=== PATIENT | female | born 1975 | race Caucasian/White ===

== ENCOUNTER 2017-08-30 21:00 | Emergency (ER) | payer OTHER ==
--- NOTE | 2017-08-30 21:47 | C.PDOC ---
History Of Present Illness 41 year old female presents to the emergency department with complaints of burning chest pain located near her midline. Patient reports chest pain is associated with nausea and loose stool earlier today. Patient also reports vague dizziness. Patient denies vomiting or shortness of breath. Patient reports she underwent an MRI of her brain earlier today done by Dr. Joe who is her PMD. Patient denies other medical history, surgical history, current medications, and allergies. Time Seen by Provider: 08/30/17 21:42 Chief Complaint (Nursing): Chest Pain History Per: Patient History/Exam Limitations: no limitations Onset/Duration Of Symptoms: Hrs Current Symptoms Are (Timing): Still Present Quality: Burning, "Pain" Associated Symptoms: Nausea. denies: Dyspnea Past Medical History Reviewed: Historical Data, Nursing Documentation, Vital Signs Vital Signs: Last Vital Signs Temp 97.8 F 08/31/17 00:13 Pulse 77 08/31/17 00:13 Resp 18 08/31/17 00:13 BP 134/85 08/31/17 00:13 Pulse Ox 98 08/31/17 18:00 - Medical History PMH: Anxiety, HTN Surgical History: No Surg Hx Family History: States: No Known Family Hx - Social History Hx Tobacco Use: No Hx Alcohol Use: No Hx Substance Use: No - Immunization History Hx Tetanus Toxoid Vaccination: No Hx Influenza Vaccination: No Hx Pneumococcal Vaccination: No Review Of Systems Except As Marked, All Systems Reviewed And Found Negative. Constitutional: Negative for: Fever, Chills, Sweats Eyes: Negative for: Pain, Vision Change, Conjunctivae Inflammation ENT: Negative for: Ear Pain, Ear Discharge, Nose Pain, Nose Discharge Cardiovascular: Positive for: Chest Pain. Negative for: Palpitations, Orthopnea , Paroxysmal Noc. Dyspnea Respiratory: Negative for: Cough, Shortness of Breath, Hemoptysis, SOB with Excertion, Pleuritic Pain, Sputum Gastrointestinal: Positive for: Nausea, Diarrhea. Negative for: Vomiting Genitourinary: Negative for: Dysuria, Frequency, Incontinence Musculoskeletal: Negative for: Neck Pain, Shoulder Pain, Arm Pain Skin: Negative for: Rash Neurological: Positive for: Dizziness. Negative for: Weakness, Numbness Psych: Negative for: Anxiety, Depression Physical Exam - Physical Exam Appears: Non-toxic, No Acute Distress Skin: Normal Color, Warm, Dry Head: Atraumatic, Normacephalic Eye(s): bilateral: Normal Inspection, PERRL, EOMI Nose: Normal Oral Mucosa: Moist Tongue: Normal Appearing Lips: Normal Appearing Teeth: Normal Dentition Throat: Normal Neck: Normal, Supple Chest: Symmetrical Cardiovascular: Rhythm Regular, No Murmur Respiratory: Normal Breath Sounds, No Rales, No Rhonchi, No Wheezing Gastrointestinal/Abdominal: Normal Exam, Soft, No Tenderness, Other (abdomen is obese) Extremity: Normal ROM, No Tenderness Extremity: Bilateral: Atraumatic, No Pedal Edema, Normal Color And Temperature, Normal ROM Neurological/Psych: Oriented x3, Normal Speech, Normal Cognition ED Course And Treatment - Laboratory Results Result Diagrams: 08/30/17 22:35 08/30/17 23:13 O2 Sat by Pulse Oximetry: 98 (RA) Pulse Ox Interpretation: Normal Medical Decision Making Medical Decision Making: Plan: EKG CMP Lipase CBC CXR Two Views 1tab PO Duoneb 3ml INH Maalox 30ml Protonix 40mg IVP Reglan 10mg IVP NaCl IV Fluids Toradol 30mg IVP Nebulizer Treatment Urinalysis Results: CBC 12.5, 1+ Urine Blood, Urine negative. pt improved Disposition Counseled Patient/Family Regarding: Diagnosis, Need For Followup, Rx Given - Disposition Referrals: [facility] [Outside] [facility] [Outside] [facility] [place] [Outside] Disposition: HOME/ ROUTINE Disposition Time: 23:52 Condition: GOOD Prescriptions: Famotidine [Pepcid] 40 mg PO DAILY 20 Days #20 tablet Forms: [employer] (Khmer) - Clinical Impression Clinical Impression: Chest discomfort, GERD (gastroesophageal reflux disease) - Scribe Statement The provider has reviewed the documentation as recorded by the Scribe (Darinel Brothers) Provider Attestation: All medical record entries made by the Scribe were at my direction and personally dictated by me. I have reviewed the chart and agree that the record accurately reflects my personal performance of the history, physical exam, medical decision making, and the department course for this patient. I have also personally directed, reviewed, and agree with the discharge instructions and disposition.
[2017-08-30] MEDS ORDERED: Sodium Chloride 0.9% 1,000 ML IV ONE (22:27)
[2017-08-30] MEDS ORDERED: Aluminum Hydroxide/Magnesium Hydroxide Susp (30 mL) PO STA (22:27)
[2017-08-30] MEDS ORDERED: Belladonna-Phenobarbital PO STA (22:27)
[2017-08-30] MEDS ORDERED: Aluminum Hydroxide/Magnesium Hydroxide Susp (30 mL) ONE (22:42)
[2017-08-30] MEDS ORDERED: Belladonna-Phenobarbital ONE (22:42)
[2017-08-30 22:43] LABS: BASO # 0.2 K/uL (0.0-0.2); BASO % 1.3 % (0.0-2.0); EOS # 0.2 K/uL (0.0-0.7); EOS % 1.2 % (0.0-4.0); HEMOGLOBIN 13.7 g/dL (11.0-16.0); LYMPH # 2.4 K/uL (1.0-4.3); LYMPH % 19.6 % (20.0-40.0); MEAN CORPUSCULAR HEMOGLOBIN 28.2 pg (27.0-31.0); MEAN CORPUSCULAR HGB CONC 33.5 g/dL (33.0-37.0); MEAN PLATELET VOLUME 10.1 fL (7.2-11.7); MONO # 0.7 K/uL (0.0-0.8); MONO % 5.3 % (0.0-10.0); NEUT # 9.1 K/uL (1.8-7.0); NEUT % 72.6 % (50.0-75.0); RBC 4.87 Mil/uL (3.80-5.20); WHITE BLOOD COUNT 12.5 K/uL (4.8-10.8)
[2017-08-30] MEDS ORDERED: Sodium Chloride 0.9% 1,000 ML ONE (22:43)
[2017-08-30] MEDS ORDERED: Albuterol-Ipratrop 3 mg / 0.5 (3 ml) UD INH STA (22:43)
[2017-08-30 22:48] LABS: HCG,QUALITATIVE URINE NEGATIVE (NEGATIVE)
[2017-08-30 22:49] LABS: SQUAMOUS EPITHIAL 2 /hpf (0-5); URINE BACTERIA RARE (<OCC); URINE BILIRUBIN NEGATIVE (NEGATIVE); URINE BLOOD 1+ (NEGATIVE); URINE CLARITY Clear (Clear); URINE COLOR Yellow (YELLOW); URINE GLUCOSE (UA) NORMAL (Normal); URINE LEUKOCYTE ESTERASE NEG Leu/uL (Negative); URINE PROTEIN NEGATIVE (NEGATIVE); URINE UROBILINOGEN NORMAL mg/dL (0.2-1.0)
[2017-08-30 23:29] LABS: ALB/GLOB RATIO 1.1 (1.0-2.1); ALBUMIN 3.8 g/dL (3.5-5.0); CALCIUM 8.8 mg/dl (8.6-10.4); GFR AFRICAN-AMERICAN > 60; GFR NON-AFRICAN AMERICAN > 60; LIPASE 89 U/L (23-300)
[2017-08-30 23:39] LABS: ALT/SGPT 24 U/L (9-52); AST/SGOT 24 U/L (14-36); BLOOD UREA NITROGEN 20 mg/dL (7-17)
[2017-08-30] MEDS ORDERED: Albuterol-Ipratrop 3 mg / 0.5 (3 ml) UD ONE (23:53)
[2017-08-31 00:14] VITALS: BP 134/85; PULSE 77; RESP 18; TEMP 97.8
--- NOTE | 2017-08-31 07:45 | RAD ---
HISTORY: abd pain COMPARISON: Chest x-ray 04/02/2015 TECHNIQUE: Chest PA and lateral FINDINGS: LUNGS: No focal consolidation is seen. PLEURA: No pleural effusion is identified. CARDIOVASCULAR: Heart size is within normal limits. OSSEOUS STRUCTURES: Degenerative changes noted of the spine. VISUALIZED UPPER ABDOMEN: Unremarkable. OTHER FINDINGS: None. IMPRESSION: No acute cardiopulmonary process seen.
--- NOTE | 2017-08-31 12:12 | CARD ---
APPROVED REPORT EKG Measurement Heart [id number] <Conclusion> Normal sinus rhythm with sinus arrhythmia Normal ECG
[2017-08-31 18:00] VITALS: O2SAT 98
== END 2017-08-31 00:15 | disposition home or self-care (01) ==
LOC: C.ER 21:00
DX: K21.9 Gastro-esophageal reflux disease without esophagitis (principal); R07.89 Other chest pain
CPT/HCPCS: 71046; 80053; 81001; 83690; 84703; 85025; 93005; 96361; 96374; 96375; 99285; C9113; J1885; J2765; J7040

== ENCOUNTER 2017-10-26 02:21 | Emergency (ER) | payer OTHER ==
[2017-10-26 02:35] VITALS: BMI 46.7
[2017-10-26 02:40] VITALS: TEMP 97.5
[2017-10-26 03:33] LABS: BASO # 0.1 K/uL (0.0-0.2); BASO % 1.3 % (0.0-2.0); EOS # 0.1 K/uL (0.0-0.7); HEMOGLOBIN 12.5 g/dL (11.0-16.0); LYMPH # 3.1 K/uL (1.0-4.3); MEAN CELL VOLUME 83.6 fL (81.0-99.0); MEAN CORPUSCULAR HEMOGLOBIN 27.3 pg (27.0-31.0); MEAN CORPUSCULAR HGB CONC 32.6 g/dL (33.0-37.0); MEAN PLATELET VOLUME 10.3 fL (7.2-11.7); MONO # 0.7 K/uL (0.0-0.8); MONO % 5.9 % (0.0-10.0); NEUT # 7.4 K/uL (1.8-7.0); NEUT % 64.8 % (50.0-75.0); RBC 4.58 Mil/uL (3.80-5.20); RED CELL DISTRIBUTION WIDTH 14.8 % (11.5-14.5); WHITE BLOOD COUNT 11.4 K/uL (4.8-10.8)
--- NOTE | 2017-10-26 03:34 | C.PDOC ---
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 Pt denies fever, diarrhea, dysuria, hematuria, food association, sick contact or recent travel Time Seen by Provider: 10/26/17 02:44 Chief Complaint (Nursing): Abdominal Pain History Per: Patient History/Exam Limitations: no limitations Current Symptoms Are (Timing): Still Present Severity: Moderate Location Of Pain/Discomfort: LLQ Radiation Of Pain To:: None Quality Of Discomfort: "Pain" Associated Symptoms: Nausea, Vomiting (x1), Constipation. denies: Fever, Diarrhea, Loss Of Appetite, Back Pain, Urinary Symptoms Last Bowel Movement: Yesterday Recent travel outside of the [place]: No Past Medical History Vital Signs: Last Vital Signs Temp 97.5 F L 10/26/17 02:36 Pulse 85 10/26/17 02:36 Resp 26 H 10/26/17 02:36 BP 137/87 10/26/17 02:36 Pulse Ox 98 10/26/17 05:49 - Medical History PMH: Anxiety, HTN Family History: States: Unknown Family Hx - Social History Hx Tobacco Use: No Hx Alcohol Use: No Hx Substance Use: No - Immunization History Hx Tetanus Toxoid Vaccination: No Hx Influenza Vaccination: No Hx Pneumococcal Vaccination: No Review Of Systems Constitutional: Negative for: Fever, Weakness Cardiovascular: Negative for: Chest Pain, Palpitations Respiratory: Negative for: Cough, Shortness of Breath Gastrointestinal: Positive for: Nausea, Vomiting, Abdominal Pain (LLQ), Constipation. Negative for: Diarrhea, Hematochezia Genitourinary: Positive for: Other (urinary hesitancy). Negative for: Dysuria, Frequency, Hematuria, Vaginal Discharge, Vaginal Bleeding, Rash Neurological: Negative for: Weakness, Numbness Physical Exam - Physical Exam Appears: Well, Non-toxic, Other (Pt appears anxious) Skin: Normal Color Head: Atraumatic Eye(s): bilateral: Normal Inspection, PERRL Oral Mucosa: Moist Cardiovascular: Rhythm Regular Respiratory: Normal Breath Sounds Gastrointestinal/Abdominal: Bowel Sounds, Soft, Tenderness (LLQ), No Distention , No Guarding, Other (obese abdomen) Back: Normal Inspection, No CVA Tenderness Neurological/Psych: Oriented x3 Gait: Steady ED Course And Treatment - Laboratory Results Result Diagrams: 10/26/17 03:28 10/26/17 03:28 Urine POC: Negative O2 Sat by Pulse Oximetry: 98 (RA) Pulse Ox Interpretation: Normal - CT Scan/US CT Abdomen/Pelvis Other Rad Studies (CT/US): Read By Radiologist, Radiology Report Reviewed CT/US Interpretation: EXAM: CT Abdomen and Pelvis Without Intravenous Contrast. CLINICAL HISTORY: 42 years old, female; Pain; Abdominal pain; Additional info : Lt flank pain. TECHNIQUE: Axial computed tomography images of the abdomen and pelvis without intravenous. contrast. All CT scans at this facility use at least one of these dose optimization techniques: automated exposure control; mA and/or kV adjustment per patient size (includes targeted exams. where dose is matched to clinical indication); or iterative reconstruction. Coronal and sagittal. reformatted images were created and reviewed. COMPARISON: No relevant prior studies available. FINDINGS: Lung bases: Unremarkable. No mass. No consolidation. ABDOMEN: Liver: Unremarkable. Gallbladder and bile ducts: Unremarkable. No calcified stones. No ductal dilation. Pancreas: Unremarkable. No ductal dilation. Spleen: Unremarkable. No splenomegaly. Adrenals: Unremarkable. No mass. Kidneys and ureters: Hydronephrosis left kidney due to an obstructing 3 mm stone in the proximal. left ureter. Nonobstructing stone mid left kidney. No stones in the right kidney or in the right ureter. No. hydronephrosis on the right. Stomach and bowel: Unremarkable. No obstruction. No mucosal thickening. PELVIS: Appendix: Normal appendix. Bladder: Unremarkable. No stones. Reproductive: Unremarkable as visualized. ABDOMEN and PELVIS: Intraperitoneal space: Unremarkable. No free air. No significant fluid collection. Bones/joints: No acute fracture. No dislocation. Soft tissues: Unremarkable. Vasculature: Unremarkable. No abdominal aortic aneurysm. Lymph nodes: Unremarkable. No enlarged lymph nodes. IMPRESSION: Hydronephrosis left kidney due to an obstructing 3 mm stone in the proximal left ureter. Progress Note: Toradol im and zofran IV ordered. Upon re-evaluation, patient is in no distress, feeling much better, and is stable for discharge. Counseling has been provided and pt is in agreement. Return if symptoms persist or acutely worsen. Reevaluation Time: 05:58 Reassessment Condition: Improved Disposition Counseled Patient/Family Regarding: Diagnosis, Need For Followup, Rx Given - Disposition Referrals: Dread Figueroa MD [Staff Provider] - Disposition: HOME/ ROUTINE Disposition Time: 05:52 Condition: STABLE Additional Instructions: Please follow up with Urologist Increase PO fluids Take motrin if pain reccur Return to ER if worse Prescriptions: Ibuprofen [Motrin] 600 mg PO Q6H #20 tab Tamsulosin [Flomax] 0.4 mg PO DAILY #6 cap Instructions: Renal Colic (DC) Forms: [employer] (Cambodian) - Clinical Impression Clinical Impression: Renal colic on left side
[2017-10-26 03:41] LABS: HCG,QUALITATIVE URINE NEGATIVE (NEGATIVE)
[2017-10-26 03:44] LABS: SQUAMOUS EPITHIAL 3 /hpf (0-5); URINE BILIRUBIN NEGATIVE (NEGATIVE); URINE BLOOD 3+ (NEGATIVE); URINE CLARITY Hazy (Clear); URINE COLOR Yellow (YELLOW); URINE GLUCOSE (UA) NORMAL (Normal); URINE LEUKOCYTE ESTERASE NEG Leu/uL (Negative); URINE PROTEIN 1+ mg/dL (NEGATIVE); URINE UROBILINOGEN NORMAL mg/dL (0.2-1.0)
[2017-10-26] MEDS ORDERED: Sodium Chloride 0.9% 500 ML IV ONE (03:46)
[2017-10-26] MEDS ORDERED: Sodium Chloride 0.9% 1,000 ML ONE (03:53)
[2017-10-26 04:14] LABS: ALB/GLOB RATIO 1.3 (1.0-2.1); ALBUMIN 4.3 g/dL (3.5-5.0); CALCIUM 9.3 mg/dl (8.6-10.4)
[2017-10-26 06:07] VITALS: BP 164/78; PULSE 88; RESP 18; O2SAT 100
--- NOTE | 2017-10-26 09:30 | CT ---
Date of service: 10/26/2017 PROCEDURE: CT Abdomen and Pelvis without intravenous contrast HISTORY: Left flank pain. COMPARISON: None. TECHNIQUE: Multiple contiguous axial images were performed through the abdomen and pelvis without the use of intravenous contrast. Subsequently, sagittal and coronal reformatted images were obtained. Radiation dose: Total exam DLP = 1280 mGy-cm. This CT exam was performed using one or more of the following dose reduction techniques: Automated exposure control, adjustment of the mA and/or kV according to patient size, and/or use of iterative reconstruction technique. FINDINGS: LOWER THORAX: Unremarkable. LIVER: Unremarkable. No gross lesion or ductal dilatation. GALLBLADDER AND BILE DUCTS: Unremarkable. PANCREAS: Unremarkable. No gross lesion or ductal dilatation. SPLEEN: Unremarkable. Splenule. ADRENALS: Unremarkable. No mass. KIDNEYS AND URETERS: Hydronephrosis of the left kidney secondary to an obstructing 3 millimeter calculus in the proximal left ureter. Additional punctate 1-2 millimeter calculus in the lower pole of the left kidney. VASCULATURE: Unremarkable. No aortic aneurysm. BOWEL: Unremarkable. No obstruction. No gross mural thickening. Under distended transverse and descending colon. APPENDIX: Unremarkable. Normal appendix. PERITONEUM: Unremarkable. No free fluid. No free air. LYMPH NODES: Unremarkable. No enlarged lymph nodes. BLADDER: Unremarkable. REPRODUCTIVE: Unremarkable. BONES: Degenerative changes in the spine. OTHER FINDINGS: None. IMPRESSION: Hydronephrosis of the left kidney secondary to an obstructing 3 millimeter calculus in the proximal left ureter. Additional punctate 1-2 millimeter calculus in the lower pole of the left kidney. These findings were preliminarily reported at 5:29 a.m. on 10/26/[address] Juan Antonio Ruiz from [facility].
== END 2017-10-26 06:06 | disposition home or self-care (01) ==
LOC: C.ER 02:21
DX: N23 Unspecified renal colic (principal); I10 Essential (primary) hypertension
CPT/HCPCS: 74176; 80053; 81001; 83690; 84703; 85025; 96361; 96374; 96375; 99285; J1885; J2405; J7040

== ENCOUNTER 2017-11-08 20:26 | Emergency (ER) | payer OTHER ==
[2017-11-08 20:26] VITALS: BMI 46.7
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
[2017-11-08] MEDS ORDERED: Tdap Vaccine 0.5 ml Vial (10-64 yrs) IM ONE (21:58)
[2017-11-08] MEDS ORDERED: Bacitracin 500 Units/gm Oint Foilpak UD ONE (21:59)
[2017-11-08] MEDS: Bacitracin 500 Units/gm Oint Foilpak UD TOP ONE (22:02)
[2017-11-08] MEDS: Tdap Vaccine 0.5 ml Vial (10-64 yrs) IM ONE (22:03)
[2017-11-08 22:22] VITALS: BP 134/72; PULSE 78; RESP 18; TEMP 98.2
[2017-11-10 11:48] VITALS: O2SAT 100
== END 2017-11-08 22:20 | disposition home or self-care (01) ==
LOC: C.ER 20:26
DX: T21.22XA Burn of second degree of abdominal wall, initial encounter (principal); X11.8XXA Contact with other hot tap-water, initial encounter; Y92.9 Unspecified place or not applicable; Z23 Encounter for immunization